=== PATIENT | male | born 1955 | race African-American/Black ===

== ENCOUNTER 2018-12-10 16:14 | Inpatient (IN) | payer SELFPAY ==
[~2018-12-10] VITALS: Ht 175.3 cm; Wt 76.2 kg
[2018-12-10] MEDS ORDERED: SODIUM CHLORIDE 0.9% 1,000 ML IV ONE (16:38)
[2018-12-10] MEDS ORDERED: ONDANSETRON HCL 4MG/2ML INJ IV ONE (17:00)
[2018-12-10] MEDS ORDERED: KETOROLAC 30MG/ML VIAL IV ONE (17:00)
[2018-12-10 17:07] LABS: BASOPHILS % 0.5 % (0.0-2.0); LYMPHOCYTES % 16.8 % (20.0-50.0); MEAN CORPUSCULAR HEMOGLOBIN 25.8 pg (28.0-32.0); MEAN CORPUSCULAR VOLUME 83.6 fL (80.0-94.0); MEAN PLATELET VOLUME 6.1 fl (7.4-10.4); MONOCYTES % 7.7 % (2.0-8.0); PLATELET 346 x1000/uL (130-400); RED BLOOD CELL COUNT 1.69 mill/uL (4.7-6.1); RED CELL DISTRIBUTION WIDTH 28.4 % (11.6-14.6)
[2018-12-10 17:09] LABS: CHLORIDE 110 mEq/L (98-107)
[2018-12-10 17:12] LABS: HEMATOCRIT. 14.1 % (42.0-52.0); HEMOGLOBIN. 4.4 g/dL (14.0-18.0)
[2018-12-10] MEDS ORDERED: CALCIUM CHLORIDE 1GM/10ML SYR IV NR (17:30)
[2018-12-10] MEDS ORDERED: FUROSEMIDE 20MG/2ML VIAL IVP NR (17:30)
[2018-12-10] MEDS ORDERED: SODIUM BICARBONATE 8.4% 1 MEQ/ML 50ML SYR IV NR (17:30)
[2018-12-10] MEDS ORDERED: DEXTROSE 50% WATER 50ML SYRINGE IV NR (17:30)
[2018-12-10] MEDS ORDERED: INSULIN REGULAR (HUMULIN R) 300UNITS/3ML IV NR (17:30)
[2018-12-10 17:57] LABS: PLATELET ESTIMATE NORMAL
[2018-12-10] MEDS ORDERED: MORPHINE SULFATE 4 MG/ML CPJ (NOT FOR IM USE) IV NR (18:00)
[2018-12-10] MEDS ORDERED: HYDRALAZINE 20MG/ML VIAL IV NR (18:15)
[2018-12-10] MEDS ORDERED: LIDOCAINE HCL/EPINEPHRINE 1%-EPI 1:100,000 50 ML VIAL INFIL ONE (18:30)
[2018-12-10] MEDS ORDERED: LIDOCAINE HCL/EPINEPHRINE 1%-EPI 1:100,000 20 ML VIAL INFIL NR (19:00)
[2018-12-10] MEDS ORDERED: ACETAMINOPHEN 650MG/20.3ML UDC GT PRN (19:30)
[2018-12-10] MEDS ORDERED: ACETAMINOPHEN 325MG TABLET PO PRN (19:30)
[2018-12-10] MEDS ORDERED: DEXTROSE 50% WATER 50ML SYRINGE IV PRN (19:30)
[2018-12-10] MEDS ORDERED: ONDANSETRON HCL 4MG/2ML INJ IV PRN (19:30)
[2018-12-10] MEDS ORDERED: ACETAMINOPHEN 650MG SUPP PR PRN (19:30)
[2018-12-10 20:01] LABS: PHOSPHORUS 7.2 mg/dL (2.5-4.9)
[2018-12-10 20:09] LABS: INR 1.1; PROTHROMBIN TIME 11.3 sec (9.6-11.0)
[2018-12-10 20:44] LABS: HEPATITIS B SURFACE ANTIGEN NEGATIVE
[2018-12-10] MEDS ORDERED: DEXTROSE 50% WATER 50ML SYRINGE IV ONE (22:00)
[2018-12-10 22:13] LABS: CREATINE KINASE 98 IU/L (39-308)
[2018-12-10 22:14] LABS: CREATINE KINASE MB FRACTION 2.5 ng/mL (0.5-3.6)
[2018-12-10 22:20] VITALS: BP 150/90
[2018-12-10] MEDS ORDERED: LACTULOSE 20G/30ML UDC PO NR (23:00)
[2018-12-11] VITALS (24 sets, daily range): BP systolic 127–162; BP diastolic 72–101
[2018-12-11] MEDS: SODIUM CHLORIDE 0.9% 1,000 ML IV SCH ×2 (04:44→11:59)
[2018-12-11 07:34] LABS: CREATINE KINASE 86 IU/L (39-308)
[2018-12-11 07:35] LABS: CREATINE KINASE MB FRACTION 2.3 ng/mL (0.5-3.6)
[2018-12-11] MEDS: INSULIN LISPRO 100 UNITS/ML SUBCUT SCH ×4 (08:00→21:00)
[2018-12-11] MEDS: BLOOD SUGAR DIAGNOSTIC STRIP TEST SCH ×4 (08:22→20:27)
[2018-12-11 09:23] LABS: BASOPHILS % 0.8 % (0.0-2.0); EOSINOPHILS % 2.8 % (0.0-5.0); LYMPHOCYTES % 14.8 % (20.0-50.0); MEAN CORPUSCULAR HEMOGLOBIN 26.3 pg (28.0-32.0); MEAN CORPUSCULAR VOLUME 80.4 fL (80.0-94.0); MEAN PLATELET VOLUME 6.8 fl (7.4-10.4); MONOCYTES % 8.6 % (2.0-8.0); PLATELET 253 x1000/uL (130-400); RED BLOOD CELL COUNT 2.12 mill/uL (4.7-6.1); RED CELL DISTRIBUTION WIDTH 20.6 % (11.6-14.6)
[2018-12-11 09:31] LABS: HEMOGLOBIN. 5.6 g/dL (14.0-18.0)
[2018-12-11 09:34] LABS: CHLORIDE 109 mEq/L (98-107)
[2018-12-11 12:20] LABS: CLARITY URINE CLOUDY (CLEAR); COLOR URINE YELLOW (YELLOW); KETONES URINE NEGATIVE (NEGATIVE); LEUKOCYTE ESTERASE URINE 3+ (NEGATIVE); NITRITE URINE POSITIVE (NEGATIVE); OCCULT BLOOD URINE 1+ (NEGATIVE); PROTEIN URINE 1+ (NEGATIVE); SPECIFIC GRAVITY URINE 1.011 (1.005-1.030); UROBILINOGEN URINE 0.2 E.U./dL (0.2-1.0)
[2018-12-11 12:36] LABS: *AMPHETAMINES SCREEN URINE NEGATIVE (NEGATIVE)
[2018-12-11 12:37] LABS: *BARBITURATES SCREEN URINE NEGATIVE (NEGATIVE); *BENZODIAZEPINES SCREEN URINE NEGATIVE (NEGATIVE); *COCAINE SCREEN URINE PRESUMTIVE POSITIVE (NEGATIVE); METHADONE URINE SCREEN NEGATIVE (NEGATIVE); OPIATES URINE SCREEN NEGATIVE (NEGATIVE)
[2018-12-11 12:38] LABS: CANNABINOID URINE SCREEN PRESUMTIVE POSITIVE (NEGATIVE); PHENCYCLIDINE URINE SCREEN NEGATIVE (NEGATIVE)
[2018-12-11 20:57] LABS: HEMATOCRIT 25.2 % (42.0-52.0); HEMOGLOBIN 8.6 g/dL (14.0-18.0)
[2018-12-11 21:08] LABS: TOTAL IRON BINDING CAPACITY 282 ug/dL (250-450)
[2018-12-11] MEDS: HYDROCODONE/ACETAMINOPHEN 10/325MG TABLET PO PRN (23:13)
[2018-12-12] VITALS (10 sets, daily range): BP systolic 109–163; BP diastolic 73–112
[2018-12-12] MEDS: PANTOPRAZOLE SODIUM 40 MG/VIAL IV SCH ×3 (00:39→17:03)
[2018-12-12] MEDS: SODIUM CHLORIDE 0.9% 1,000 ML IV SCH ×2 (04:56→21:38)
[2018-12-12 06:25] LABS: BASOPHILS % 0.7 % (0.0-2.0); EOSINOPHILS % 3.3 % (0.0-5.0); HEMATOCRIT. 24.6 % (42.0-52.0); HEMOGLOBIN. 8.3 g/dL (14.0-18.0); LYMPHOCYTES % 17.9 % (20.0-50.0); MEAN CORPUSCULAR HEMOGLOBIN 27.7 pg (28.0-32.0); MEAN CORPUSCULAR VOLUME 82.7 fL (80.0-94.0); MEAN PLATELET VOLUME 6.9 fl (7.4-10.4); MONOCYTES % 10.4 % (2.0-8.0); NEUTROPHILS % 67.7 % (40.0-76.0); PLATELET 224 x1000/uL (130-400); RED BLOOD CELL COUNT 2.98 mill/uL (4.7-6.1); RED CELL DISTRIBUTION WIDTH 19.2 % (11.6-14.6)
[2018-12-12] MEDS: BLOOD SUGAR DIAGNOSTIC STRIP TEST SCH ×4 (06:46→20:45)
[2018-12-12 07:29] LABS: CHLORIDE 112 mEq/L (98-107)
[2018-12-12 07:41] LABS: PHOSPHORUS 5.9 mg/dL (2.5-4.9)
[2018-12-12] MEDS: INSULIN LISPRO 100 UNITS/ML SUBCUT SCH ×4 (08:00→20:45)
[2018-12-12 08:18] LABS: *CREATININE RANDOM URINE 41.9 mg/dL (Not Estab.); MICROALBUMIN RANDOM URINE 79.2 ug/mL (Not Estab.)
[2018-12-12 09:10] LABS: A/G RATIO 0.9 (0.7-1.7); ALBUMIN 3.4 g/dL (2.9-4.4); ALPHA-1-GLOBULIN 0.4 g/dL (0.0-0.4); ALPHA-2-GLOBULIN 0.9 g/dL (0.4-1.0); BETA GLOBULIN 1.1 g/dL (0.7-1.3); GAMMA GLOBULINS 1.3 g/dL (0.4-1.8); GLOBULIN TOTAL 3.7 g/dL (2.2-3.9); IMMUNOGLOBULIN A 128 mg/dL (61-437); IMMUNOGLOBULIN G 1340 mg/dL (700-1600); IMMUNOGLOBULIN M 65 mg/dL (20-172); KAPPA LT CHAINS FREE SERUM 82.3 mg/L (3.3-19.4); KAPPA/LAMBDA RATIO 2.53 (0.26-1.65); LAMBDA LT CHAINS FREE SERUM 32.5 mg/L (5.7-26.3); M-SPIKE Not Observed g/dL (Not Observed); TOTAL PROTEIN SERUM 7.1 g/dL (6.0-8.5)
[2018-12-12] MEDS: AMLODIPINE 5MG TABLET PO SCH (10:21)
[2018-12-12 10:28] LABS: BG BASE EXCESS -6.1 mmol/L (-2.0-2.0); BG CARBOXYHEMOGLOBIN 0.3 % (0.5-1.5); BG FRACTION INSPIRED OXYGEN 21; BG HCO3 ACT 18.7 mmol/L (22.0-26.0); BG METHEMOGLOBIN 0.3 % (0.0-1.5); BG OXYHEMOGLOBIN 96.4 % (94.0-97.0); BG PCO2 33.7 mmHg (35.0-45.0); BG PH 7.361 (7.350-7.450); BG PO2 100.5 mmHg (75.0-100.0); BG SAMPLE SITE RIGHT BRACHIAL; BG TOTAL HEMOGLOBIN 8.9 g/dL (12.0-18.0); BG VENT MODE ROOM AIR
[2018-12-12 12:12] LABS: HEMATOCRIT 26.2 % (42.0-52.0); HEMOGLOBIN 8.9 g/dL (14.0-18.0)
[2018-12-12] MEDS: CLONIDINE 0.2MG TABLET PO SCH ×2 (13:38→21:07)
[2018-12-12 17:11] LABS: ANTI-DNA DOUBLE STRANDED QUANT < 1 IU/mL (0-9); ANTI-NUCLEAR ANTIBODIES DIRECT Negative (Negative)
[2018-12-12 18:08] LABS: HEMATOCRIT 22.8 % (42.0-52.0); HEMOGLOBIN 7.7 g/dL (14.0-18.0)
[2018-12-12] MEDS: HYDROCODONE/ACETAMINOPHEN 10/325MG TABLET PO PRN (21:08)
[2018-12-13] VITALS (16 sets, daily range): BP systolic 108–168; BP diastolic 70–101
[2018-12-13 00:57] LABS: HEMOGLOBIN 7.2 g/dL (14.0-18.0)
[2018-12-13 01:03] LABS: HEMATOCRIT 20.8 % (42.0-52.0)
[2018-12-13] MEDS: CLONIDINE 0.2MG TABLET PO SCH ×3 (06:00→21:08)
[2018-12-13 06:51] LABS: BASOPHILS % 0.5 % (0.0-2.0); EOSINOPHILS % 3.4 % (0.0-5.0); HEMATOCRIT. 25.6 % (42.0-52.0); HEMOGLOBIN. 8.6 g/dL (14.0-18.0); INR 1.1; LYMPHOCYTES % 21.1 % (20.0-50.0); MEAN CORPUSCULAR HEMOGLOBIN 28.1 pg (28.0-32.0); MEAN CORPUSCULAR VOLUME 84.1 fL (80.0-94.0); MEAN PLATELET VOLUME 6.8 fl (7.4-10.4); MONOCYTES % 11.6 % (2.0-8.0); NEUTROPHILS % 63.4 % (40.0-76.0); PARTIAL THROMBOPLASTIN TIME 27.1 sec (23.4-31.0); PLATELET 189 x1000/uL (130-400); PROTHROMBIN TIME 11.4 sec (9.6-11.0); RED BLOOD CELL COUNT 3.05 mill/uL (4.7-6.1); RED CELL DISTRIBUTION WIDTH 18.7 % (11.6-14.6)
[2018-12-13] MEDS: BLOOD SUGAR DIAGNOSTIC STRIP TEST SCH ×4 (06:54→21:00)
[2018-12-13] MEDS: INSULIN LISPRO 100 UNITS/ML SUBCUT SCH ×4 (08:00→21:00)
[2018-12-13 08:10] LABS: PHOSPHORUS 5.3 mg/dL (2.5-4.9)
[2018-12-13 08:18] LABS: COMPLEMENT C3 155 mg/dL (82-167)
[2018-12-13] MEDS: PANTOPRAZOLE SODIUM 40 MG/VIAL IV SCH ×2 (09:00→18:07)
[2018-12-13 09:06] LABS: GLOMERULAR BASEMENT MEMB AB 7 units (0-20)
[2018-12-13] MEDS ORDERED: MIDAZOLAM HCL 5 MG/5 ML VIAL ONE (09:17)
[2018-12-13] MEDS ORDERED: LIDOCAINE HCL 1% 20ML VIAL (Pyxis) INJ ONE (09:17)
[2018-12-13] MEDS ORDERED: PROPOFOL 200MG/20ML VIAL IV ONE (09:17)
[2018-12-13] MEDS: DOCUSATE SODIUM 100MG CAPSULE PO SCH ×2 (09:30→18:07)
[2018-12-13] MEDS ORDERED: SODIUM CHLORIDE 0.9% 1,000 ML IV ONE (09:37)
[2018-12-13] MEDS ORDERED: ONDANSETRON HCL 4MG/2ML INJ IV PRN (09:45)
[2018-12-13] MEDS ORDERED: HYDROMORPHONE HCL/PF 2MG/ML CPJ IV PRN (09:45)
[2018-12-13] MEDS ORDERED: MORPHINE SULFATE 4 MG/ML CPJ (NOT FOR IM USE) IV PRN (09:45)
[2018-12-13] MEDS: AMLODIPINE 5MG TABLET PO SCH (12:03)
[2018-12-13] MEDS: SODIUM CHLORIDE 0.9% 1,000 ML IV SCH (12:04)
[2018-12-13] MEDS: BICALUTAMIDE 50 MG TABLET PO SCH (12:09)
[2018-12-13 13:06] LABS: ANTI-MYELOPEROXIDASE AB < 9.0 U/mL (0.0-9.0); ANTI-PROTEINASE 3 ABS < 3.5 U/mL (0.0-3.5)
[2018-12-13 13:20] LABS: HEMOGLOBIN 9.4 g/dL (14.0-18.0)
[2018-12-13 15:10] LABS: ATYPICAL P-ANCA <1:20 titer (Neg:<1:20); CYTOPLASMIC C-ANCA <1:20 titer (Neg:<1:20); PERINUCLEAR P-ANCA <1:20 titer (Neg:<1:20)
[2018-12-13 17:01] LABS: CLARITY URINE CLEAR (CLEAR); COLOR URINE YELLOW (YELLOW); KETONES URINE NEGATIVE (NEGATIVE); LEUKOCYTE ESTERASE URINE 2+ (NEGATIVE); NITRITE URINE NEGATIVE (NEGATIVE); OCCULT BLOOD URINE 2+ (NEGATIVE); PH URINE 6.5 (4.5-8.0); PROTEIN URINE NEGATIVE (NEGATIVE); SPECIFIC GRAVITY URINE 1.008 (1.005-1.030); UROBILINOGEN URINE 0.2 E.U./dL (0.2-1.0)
[2018-12-13 19:41] LABS: HEMATOCRIT 29.6 % (42.0-52.0); HEMOGLOBIN 9.7 g/dL (14.0-18.0)
[2018-12-13] MEDS: HYDROCODONE/ACETAMINOPHEN 10/325MG TABLET PO PRN (21:08)
[2018-12-14] VITALS (12 sets, daily range): BP systolic 120–147; BP diastolic 66–89
[2018-12-14 04:16] LABS: ANTI-CARDIOLIPIN AB IGG < 9 GPL U/mL (0-14); ANTI-CARDIOLIPIN AB IGM < 9 MPL U/mL (0-12)
[2018-12-14] MEDS: CLONIDINE 0.2MG TABLET PO SCH ×3 (05:22→21:05)
[2018-12-14] MEDS: SODIUM CHLORIDE 0.9% 1,000 ML IV SCH (05:22)
[2018-12-14 05:54] LABS: BASOPHILS % 0.6 % (0.0-2.0); EOSINOPHILS % 3.5 % (0.0-5.0); HEMATOCRIT. 25.3 % (42.0-52.0); HEMOGLOBIN. 8.6 g/dL (14.0-18.0); LYMPHOCYTES % 10.9 % (20.0-50.0); MEAN CORPUSCULAR HEMOGLOBIN 28.7 pg (28.0-32.0); MEAN CORPUSCULAR VOLUME 84.6 fL (80.0-94.0); MONOCYTES % 7.1 % (2.0-8.0); NEUTROPHILS % 77.9 % (40.0-76.0); PLATELET 175 x1000/uL (130-400); RED BLOOD CELL COUNT 2.99 mill/uL (4.7-6.1); RED CELL DISTRIBUTION WIDTH 18.6 % (11.6-14.6)
[2018-12-14 06:09] LABS: CHLORIDE 112 mEq/L (98-107)
[2018-12-14] MEDS: BLOOD SUGAR DIAGNOSTIC STRIP TEST SCH ×4 (07:00→20:21)
[2018-12-14] MEDS: INSULIN LISPRO 100 UNITS/ML SUBCUT SCH ×4 (08:06→20:21)
[2018-12-14] MEDS ORDERED: BICA50TA48 PO (09:18)
[2018-12-14] MEDS ORDERED: AMLO5TAB88 PO (09:18)
[2018-12-14] MEDS: BICALUTAMIDE 50 MG TABLET PO SCH (09:34)
[2018-12-14] MEDS: DOCUSATE SODIUM 100MG CAPSULE PO SCH ×2 (09:34→17:00)
[2018-12-14] MEDS: PANTOPRAZOLE SODIUM 40 MG/VIAL IV SCH ×2 (09:34→17:55)
[2018-12-14] MEDS: AMLODIPINE 5MG TABLET PO SCH (09:34)
[2018-12-14] MEDS ORDERED: MAGNESIUM 2 G PREMIX 50 ML IV NR (10:30)
[2018-12-14] MEDS ORDERED: MAGNESIUM 2 G PREMIX 50 ML IV ONE (14:30)
[2018-12-14] MEDS: HYDROCODONE/ACETAMINOPHEN 10/325MG TABLET PO PRN (21:04)
[2018-12-15] VITALS (12 sets, daily range): BP systolic 97–142; BP diastolic 54–90
[2018-12-15] MEDS: SODIUM CHLORIDE 0.9% 1,000 ML IV SCH ×2 (00:53→17:30)
[2018-12-15] MEDS: CLONIDINE 0.2MG TABLET PO SCH ×3 (05:03→22:32)
[2018-12-15 06:01] LABS: HEMATOCRIT. 24.5 % (42.0-52.0); HEMOGLOBIN. 8.3 g/dL (14.0-18.0); MEAN CORPUSCULAR HEMOGLOBIN 28.6 pg (28.0-32.0); MEAN CORPUSCULAR VOLUME 84.7 fL (80.0-94.0); MEAN PLATELET VOLUME 7.4 fl (7.4-10.4); PLATELET 181 x1000/uL (130-400); RED BLOOD CELL COUNT 2.89 mill/uL (4.7-6.1); RED CELL DISTRIBUTION WIDTH 18.7 % (11.6-14.6)
[2018-12-15 06:31] LABS: PHOSPHORUS 3.9 mg/dL (2.5-4.9)
[2018-12-15] MEDS: BLOOD SUGAR DIAGNOSTIC STRIP TEST SCH ×4 (06:32→20:18)
[2018-12-15] MEDS: INSULIN LISPRO 100 UNITS/ML SUBCUT SCH ×4 (07:53→20:18)
[2018-12-15] MEDS: DOCUSATE SODIUM 100MG CAPSULE PO SCH ×2 (08:54→16:56)
[2018-12-15] MEDS: PANTOPRAZOLE SODIUM 40 MG/VIAL IV SCH ×2 (08:54→17:05)
[2018-12-15] MEDS: BICALUTAMIDE 50 MG TABLET PO SCH (08:54)
[2018-12-15] MEDS: AMLODIPINE 5MG TABLET PO SCH (08:55)
[2018-12-15] MEDS: HYDROCODONE/ACETAMINOPHEN 10/325MG TABLET PO PRN (20:13)
[2018-12-16] VITALS (12 sets, daily range): BP systolic 111–132; BP diastolic 64–78
[2018-12-16 05:42] LABS: HEMOGLOBIN. 8.1 g/dL (14.0-18.0); MEAN CORPUSCULAR HEMOGLOBIN 28.5 pg (28.0-32.0); MEAN CORPUSCULAR VOLUME 85.1 fL (80.0-94.0); MEAN PLATELET VOLUME 7.3 fl (7.4-10.4); PLATELET 168 x1000/uL (130-400); RED BLOOD CELL COUNT 2.83 mill/uL (4.7-6.1)
[2018-12-16] MEDS: CLONIDINE 0.2MG TABLET PO SCH ×3 (06:57→22:14)
[2018-12-16 06:59] LABS: CHLORIDE 112 mEq/L (98-107)
[2018-12-16 07:08] LABS: PHOSPHORUS 4.4 mg/dL (2.5-4.9)
[2018-12-16] MEDS: BLOOD SUGAR DIAGNOSTIC STRIP TEST SCH ×4 (07:30→21:00)
[2018-12-16] MEDS: INSULIN LISPRO 100 UNITS/ML SUBCUT SCH ×4 (08:00→21:00)
[2018-12-16] MEDS ORDERED: MAGNESIUM 4 G PREMIX 100 ML IV SCH (09:00)
[2018-12-16] MEDS: BICALUTAMIDE 50 MG TABLET PO SCH (09:25)
[2018-12-16] MEDS: PANTOPRAZOLE SODIUM 40 MG/VIAL IV SCH ×3 (09:25→18:05)
[2018-12-16] MEDS: DOCUSATE SODIUM 100MG CAPSULE PO SCH ×2 (09:25→18:05)
[2018-12-16] MEDS: AMLODIPINE 5MG TABLET PO SCH (09:29)
[2018-12-16] MEDS: SODIUM CHLORIDE 0.9% 1,000 ML IV SCH (09:42)
[2018-12-16 13:08] LABS: PLATELET ESTIMATE NORMAL
[2018-12-16] MEDS: HYDROCODONE/ACETAMINOPHEN 10/325MG TABLET PO PRN (18:23)
[2018-12-17] VITALS (9 sets, daily range): BP systolic 97–120; BP diastolic 56–70
[2018-12-17 05:06] LABS: BASOPHILS % 0.8 % (0.0-2.0); EOSINOPHILS % 4.2 % (0.0-5.0); HEMATOCRIT. 23.4 % (42.0-52.0); HEMOGLOBIN. 7.9 g/dL (14.0-18.0); MEAN CORPUSCULAR HEMOGLOBIN 28.8 pg (28.0-32.0); MEAN CORPUSCULAR VOLUME 85.3 fL (80.0-94.0); MEAN PLATELET VOLUME 7.1 fl (7.4-10.4); MONOCYTES % 13.4 % (2.0-8.0); NEUTROPHILS % 59.6 % (40.0-76.0); PLATELET 196 x1000/uL (130-400); RED BLOOD CELL COUNT 2.75 mill/uL (4.7-6.1); RED CELL DISTRIBUTION WIDTH 18.6 % (11.6-14.6)
[2018-12-17 05:49] LABS: CHLORIDE 110 mEq/L (98-107)
[2018-12-17 06:04] LABS: PHOSPHORUS 3.1 mg/dL (2.5-4.9)
[2018-12-17] MEDS: CLONIDINE 0.2MG TABLET PO SCH ×3 (06:23→21:11)
[2018-12-17] MEDS: BLOOD SUGAR DIAGNOSTIC STRIP TEST SCH ×4 (07:30→21:00)
[2018-12-17] MEDS: INSULIN LISPRO 100 UNITS/ML SUBCUT SCH ×4 (08:00→21:00)
[2018-12-17] MEDS: PANTOPRAZOLE SODIUM 40 MG/VIAL IV SCH ×2 (08:36→16:23)
[2018-12-17] MEDS: AMLODIPINE 5MG TABLET PO SCH (08:41)
[2018-12-17] MEDS: BICALUTAMIDE 50 MG TABLET PO SCH (08:42)
[2018-12-17] MEDS: DOCUSATE SODIUM 100MG CAPSULE PO SCH ×2 (08:43→16:23)
[2018-12-17] MEDS: HYDROCODONE/ACETAMINOPHEN 10/325MG TABLET PO PRN (21:26)
[2018-12-18] VITALS: BP 120/78
[2018-12-18 04:00] VITALS: BP 115/71
[2018-12-18] MEDS: CLONIDINE 0.2MG TABLET PO SCH ×3 (05:58→20:29)
[2018-12-18 07:00] VITALS: BP 119/70
[2018-12-18] MEDS: BLOOD SUGAR DIAGNOSTIC STRIP TEST SCH ×4 (07:20→20:29)
[2018-12-18] MEDS: INSULIN LISPRO 100 UNITS/ML SUBCUT SCH ×4 (07:30→20:29)
[2018-12-18] MEDS: AMLODIPINE 5MG TABLET PO SCH (08:43)
[2018-12-18] MEDS: PANTOPRAZOLE SODIUM 40 MG/VIAL IV SCH ×2 (08:43→16:25)
[2018-12-18] MEDS: DOCUSATE SODIUM 100MG CAPSULE PO SCH ×2 (08:43→16:25)
[2018-12-18] MEDS: BICALUTAMIDE 50 MG TABLET PO SCH (11:03)
[2018-12-18 11:42] VITALS: BP 124/81
[2018-12-18 16:00] VITALS: BP 97/66
[2018-12-18 20:00] VITALS: BP 106/67
[2018-12-18] MEDS: HYDROCODONE/ACETAMINOPHEN 10/325MG TABLET PO PRN (20:30)
[2018-12-19] VITALS: BP_SYST 107
[2018-12-19 04:00] VITALS: BP 114/74
[2018-12-19] MEDS: CLONIDINE 0.2MG TABLET PO SCH ×3 (05:45→22:00)
[2018-12-19] MEDS: BLOOD SUGAR DIAGNOSTIC STRIP TEST SCH ×4 (06:57→21:00)
[2018-12-19] MEDS: INSULIN LISPRO 100 UNITS/ML SUBCUT SCH ×4 (06:57→21:00)
[2018-12-19 08:00] VITALS: BP_SYST 104; BP_SYST 95; BP_DIAS 66; BP_DIAS 68
[2018-12-19] MEDS: BICALUTAMIDE 50 MG TABLET PO SCH (08:37)
[2018-12-19] MEDS: AMLODIPINE 5MG TABLET PO SCH (08:37)
[2018-12-19] MEDS: DOCUSATE SODIUM 100MG CAPSULE PO SCH ×2 (08:37→16:11)
[2018-12-19] MEDS: PANTOPRAZOLE SODIUM 40 MG/VIAL IV SCH ×2 (08:38→16:11)
[2018-12-19 12:00] VITALS: BP 113/81
[2018-12-19 16:00] VITALS: BP 100/67
[2018-12-19 20:00] VITALS: BP 104/67
[2018-12-19] MEDS: HYDROCODONE/ACETAMINOPHEN 10/325MG TABLET PO PRN (20:05)
[2018-12-20] VITALS (7 sets, daily range): BP systolic 102–136; BP diastolic 67–88
[2018-12-20] MEDS: CLONIDINE 0.2MG TABLET PO SCH ×3 (06:20→21:26)
[2018-12-20] MEDS: BLOOD SUGAR DIAGNOSTIC STRIP TEST SCH ×4 (06:24→21:00)
[2018-12-20] MEDS: INSULIN LISPRO 100 UNITS/ML SUBCUT SCH ×4 (07:00→21:00)
[2018-12-20] MEDS: BICALUTAMIDE 50 MG TABLET PO SCH (08:55)
[2018-12-20] MEDS: AMLODIPINE 5MG TABLET PO SCH (08:56)
[2018-12-20] MEDS: PANTOPRAZOLE SODIUM 40 MG/VIAL IV SCH ×2 (08:56→16:17)
[2018-12-20] MEDS: DOCUSATE SODIUM 100MG CAPSULE PO SCH ×2 (08:56→16:17)
[2018-12-20] MEDS: HYDROCODONE/ACETAMINOPHEN 10/325MG TABLET PO PRN (21:16)
[2018-12-20] MEDS: DIPHENHYDRAMINE 50MG/ML VIAL IV PRN (21:24)
[2018-12-21] VITALS: BP 118/80
[2018-12-21 04:00] VITALS: BP 116/81
[2018-12-21] MEDS: CLONIDINE 0.2MG TABLET PO SCH ×3 (05:18→22:00)
[2018-12-21] MEDS: BLOOD SUGAR DIAGNOSTIC STRIP TEST SCH ×4 (05:19→21:00)
[2018-12-21] MEDS: INSULIN LISPRO 100 UNITS/ML SUBCUT SCH ×4 (07:50→21:00)
[2018-12-21 08:00] VITALS: BP 102/62
[2018-12-21] MEDS: PANTOPRAZOLE SODIUM 40 MG/VIAL IV SCH ×2 (08:40→16:42)
[2018-12-21] MEDS: HYDROCODONE/ACETAMINOPHEN 10/325MG TABLET PO PRN ×3 (08:41→21:25)
[2018-12-21] MEDS: DOCUSATE SODIUM 100MG CAPSULE PO SCH ×2 (08:45→17:00)
[2018-12-21] MEDS: AMLODIPINE 5MG TABLET PO SCH (08:45)
[2018-12-21] MEDS: BICALUTAMIDE 50 MG TABLET PO SCH (09:06)
[2018-12-21 12:00] VITALS: BP 103/62
[2018-12-21 16:03] VITALS: BP 122/71
[2018-12-21] MEDS: DIPHENHYDRAMINE 50MG/ML VIAL IV PRN (18:49)
[2018-12-21 20:00] VITALS: BP 116/70
[2018-12-22] VITALS: BP 130/79
[2018-12-22 04:00] VITALS: BP 128/70
[2018-12-22] MEDS: CLONIDINE 0.2MG TABLET PO SCH ×2 (05:18→14:00)
[2018-12-22] MEDS: BLOOD SUGAR DIAGNOSTIC STRIP TEST SCH ×4 (05:19→21:25)
[2018-12-22] MEDS: INSULIN LISPRO 100 UNITS/ML SUBCUT SCH ×4 (07:50→21:00)
[2018-12-22 08:00] VITALS: BP 85/57
[2018-12-22] MEDS: AMLODIPINE 5MG TABLET PO SCH (09:00)
[2018-12-22] MEDS: PANTOPRAZOLE SODIUM 40 MG/VIAL IV SCH ×2 (09:00→17:00)
[2018-12-22] MEDS: BICALUTAMIDE 50 MG TABLET PO SCH (09:29)
[2018-12-22] MEDS: DOCUSATE SODIUM 100MG CAPSULE PO SCH ×2 (09:29→17:07)
[2018-12-22 12:00] VITALS: BP 125/71
[2018-12-22] MEDS: HYDROCODONE/ACETAMINOPHEN 10/325MG TABLET PO PRN (17:08)
[2018-12-22 17:18] LABS: BASOPHILS % 1.3 % (0.0-2.0); EOSINOPHILS % 3.5 % (0.0-5.0); HEMATOCRIT. 25.8 % (42.0-52.0); HEMOGLOBIN. 8.5 g/dL (14.0-18.0); LYMPHOCYTES % 18.3 % (20.0-50.0); MEAN CORPUSCULAR HEMOGLOBIN 28.5 pg (28.0-32.0); MEAN CORPUSCULAR VOLUME 86.2 fL (80.0-94.0); MEAN PLATELET VOLUME 7.1 fl (7.4-10.4); MONOCYTES % 13.5 % (2.0-8.0); NEUTROPHILS % 63.4 % (40.0-76.0); PLATELET 358 x1000/uL (130-400); RED BLOOD CELL COUNT 2.99 mill/uL (4.7-6.1); RED CELL DISTRIBUTION WIDTH 18.4 % (11.6-14.6)
[2018-12-22 17:19] LABS: CHLORIDE 108 mEq/L (98-107)
[2018-12-22] MEDS ORDERED: LACTULOSE 20G/30ML UDC PO NR (17:45)
[2018-12-22] MEDS ORDERED: SODIUM POLYSTYRENE SULFONATE 15 G/60 ML BOT PO NR (17:45)
[2018-12-22 20:00] VITALS: BP 116/74
[2018-12-23] VITALS: BP 117/70
[2018-12-23 04:00] VITALS: BP 122/70
[2018-12-23] MEDS: BLOOD SUGAR DIAGNOSTIC STRIP TEST SCH ×4 (06:47→21:00)
[2018-12-23 07:48] LABS: CHLORIDE 107 mEq/L (98-107)
[2018-12-23] MEDS: INSULIN LISPRO 100 UNITS/ML SUBCUT SCH ×4 (07:50→21:00)
[2018-12-23] MEDS: PANTOPRAZOLE SODIUM 40 MG/VIAL IV SCH ×2 (07:59→17:00)
[2018-12-23 08:00] VITALS: BP 116/76
[2018-12-23] MEDS: AMLODIPINE 5MG TABLET PO SCH (08:55)
[2018-12-23] MEDS: DOCUSATE SODIUM 100MG CAPSULE PO SCH ×2 (08:55→17:00)
[2018-12-23] MEDS: BICALUTAMIDE 50 MG TABLET PO SCH (09:06)
[2018-12-23 12:00] VITALS: BP 109/76
[2018-12-23] MEDS: HYDROCODONE/ACETAMINOPHEN 10/325MG TABLET PO PRN (14:29)
[2018-12-23 16:00] VITALS: BP 109/70
[2018-12-23 20:00] VITALS: BP 125/70
[2018-12-24] VITALS (7 sets, daily range): BP systolic 105–125; BP diastolic 65–85
[2018-12-24] MEDS: BLOOD SUGAR DIAGNOSTIC STRIP TEST SCH ×4 (07:20→21:00)
[2018-12-24] MEDS: INSULIN LISPRO 100 UNITS/ML SUBCUT SCH ×4 (07:50→21:00)
[2018-12-24] MEDS: DOCUSATE SODIUM 100MG CAPSULE PO SCH ×2 (08:38→17:00)
[2018-12-24] MEDS: BICALUTAMIDE 50 MG TABLET PO SCH (08:38)
[2018-12-24] MEDS: AMLODIPINE 5MG TABLET PO SCH (08:38)
[2018-12-24] MEDS: PANTOPRAZOLE SODIUM 40 MG/VIAL IV SCH ×2 (08:39→17:00)
[2018-12-24] MEDS: HYDROCODONE/ACETAMINOPHEN 10/325MG TABLET PO PRN ×2 (10:43→20:41)
[2018-12-25] VITALS: BP 105/64
[2018-12-25 04:00] VITALS: BP 131/85
[2018-12-25] MEDS: HYDROCODONE/ACETAMINOPHEN 10/325MG TABLET PO PRN ×2 (06:36→17:24)
[2018-12-25] MEDS: BLOOD SUGAR DIAGNOSTIC STRIP TEST SCH ×4 (07:20→21:00)
[2018-12-25] MEDS: INSULIN LISPRO 100 UNITS/ML SUBCUT SCH ×4 (07:41→21:00)
[2018-12-25 08:00] VITALS: BP 120/82
[2018-12-25] MEDS: DOCUSATE SODIUM 100MG CAPSULE PO SCH ×2 (08:20→17:24)
[2018-12-25] MEDS: AMLODIPINE 5MG TABLET PO SCH (08:20)
[2018-12-25] MEDS: BICALUTAMIDE 50 MG TABLET PO SCH (08:21)
[2018-12-25] MEDS: PANTOPRAZOLE SODIUM 40 MG/VIAL IV SCH ×2 (09:00→17:00)
[2018-12-25 11:42] VITALS: BP 100/68
[2018-12-25 16:00] VITALS: BP 112/80
[2018-12-25 20:00] VITALS: BP 126/85
[2018-12-26] VITALS: BP 11/76
[2018-12-26 04:00] VITALS: BP 122/74
[2018-12-26] MEDS: BLOOD SUGAR DIAGNOSTIC STRIP TEST SCH ×4 (06:23→20:52)
[2018-12-26] MEDS: INSULIN LISPRO 100 UNITS/ML SUBCUT SCH ×4 (07:50→20:52)
[2018-12-26 08:00] VITALS: BP 123/83
[2018-12-26] MEDS: PANTOPRAZOLE SODIUM 40 MG/VIAL IV SCH ×2 (08:55→16:03)
[2018-12-26] MEDS: BICALUTAMIDE 50 MG TABLET PO SCH (08:59)
[2018-12-26] MEDS: DOCUSATE SODIUM 100MG CAPSULE PO SCH ×2 (08:59→16:25)
[2018-12-26] MEDS: AMLODIPINE 5MG TABLET PO SCH (08:59)
[2018-12-26] MEDS: HYDROCODONE/ACETAMINOPHEN 10/325MG TABLET PO PRN ×2 (10:12→16:26)
[2018-12-26 12:11] VITALS: BP 108/60
[2018-12-26 15:41] VITALS: BP 120/52
[2018-12-26 20:33] VITALS: BP 121/68
[2018-12-27 00:32] VITALS: BP 110/66
[2018-12-27 04:00] VITALS: BP 118/84
[2018-12-27] MEDS: BLOOD SUGAR DIAGNOSTIC STRIP TEST SCH ×4 (06:41→21:00)
[2018-12-27] MEDS: INSULIN LISPRO 100 UNITS/ML SUBCUT SCH ×4 (07:50→21:00)
[2018-12-27 08:00] VITALS: BP 112/80
[2018-12-27] MEDS: AMLODIPINE 5MG TABLET PO SCH (09:00)
[2018-12-27] MEDS: DOCUSATE SODIUM 100MG CAPSULE PO SCH ×2 (09:54→17:00)
[2018-12-27] MEDS: PANTOPRAZOLE SODIUM 40 MG/VIAL IV SCH ×2 (09:54→10:15)
[2018-12-27] MEDS: BICALUTAMIDE 50 MG TABLET PO SCH (10:11)
[2018-12-27] MEDS: HYDROCODONE/ACETAMINOPHEN 10/325MG TABLET PO PRN ×3 (10:13→22:57)
[2018-12-27 12:14] VITALS: BP 119/75
[2018-12-27 16:23] VITALS: BP 115/73
[2018-12-27 20:00] VITALS: BP 114/76
[2018-12-28 00:04] VITALS: BP 112/77
[2018-12-28 04:02] VITALS: BP 115/82
[2018-12-28] MEDS: BLOOD SUGAR DIAGNOSTIC STRIP TEST SCH ×4 (06:43→21:00)
[2018-12-28] MEDS: INSULIN LISPRO 100 UNITS/ML SUBCUT SCH ×4 (07:47→21:00)
[2018-12-28 08:00] VITALS: BP 121/84
[2018-12-28] MEDS: PANTOPRAZOLE SODIUM 40 MG/VIAL IV SCH ×3 (09:00→17:00)
[2018-12-28] MEDS: DOCUSATE SODIUM 100MG CAPSULE PO SCH ×2 (09:25→17:00)
[2018-12-28] MEDS: BICALUTAMIDE 50 MG TABLET PO SCH (09:25)
[2018-12-28] MEDS: AMLODIPINE 5MG TABLET PO SCH (09:25)
[2018-12-28 12:00] VITALS: BP 118/78
[2018-12-28 16:00] VITALS: BP 122/76
[2018-12-28] MEDS: HYDROCODONE/ACETAMINOPHEN 10/325MG TABLET PO PRN (19:55)
[2018-12-28 20:00] VITALS: BP 122/72
[2018-12-29] VITALS: BP 121/76
[2018-12-29] MEDS: HYDROCODONE/ACETAMINOPHEN 10/325MG TABLET PO PRN ×4 (02:27→22:33)
[2018-12-29 04:00] VITALS: BP 125/69
[2018-12-29] MEDS: BLOOD SUGAR DIAGNOSTIC STRIP TEST SCH ×4 (06:37→21:00)
[2018-12-29] MEDS: INSULIN LISPRO 100 UNITS/ML SUBCUT SCH ×4 (07:25→21:00)
[2018-12-29 08:00] VITALS: BP 129/91
[2018-12-29] MEDS: DOCUSATE SODIUM 100MG CAPSULE PO SCH ×2 (09:00→16:07)
[2018-12-29] MEDS: PANTOPRAZOLE SODIUM 40 MG/VIAL IV SCH ×2 (09:00→16:07)
[2018-12-29] MEDS: AMLODIPINE 5MG TABLET PO SCH (09:30)
[2018-12-29] MEDS: BICALUTAMIDE 50 MG TABLET PO SCH (09:31)
[2018-12-29 12:00] VITALS: BP 106/65
[2018-12-29 16:00] VITALS: BP 131/84
[2018-12-29 20:00] VITALS: BP 121/86
[2018-12-30] VITALS: BP 113/71
[2018-12-30 04:00] VITALS: BP 121/78
[2018-12-30] MEDS: HYDROCODONE/ACETAMINOPHEN 10/325MG TABLET PO PRN ×3 (05:30→20:36)
[2018-12-30] MEDS: BLOOD SUGAR DIAGNOSTIC STRIP TEST SCH ×4 (07:20→21:00)
[2018-12-30] MEDS: INSULIN LISPRO 100 UNITS/ML SUBCUT SCH ×4 (07:50→21:00)
[2018-12-30 08:00] VITALS: BP 118/76
[2018-12-30] MEDS: PANTOPRAZOLE SODIUM 40 MG/VIAL IV SCH ×2 (08:17→17:00)
[2018-12-30] MEDS: DOCUSATE SODIUM 100MG CAPSULE PO SCH ×2 (08:17→17:00)
[2018-12-30] MEDS: AMLODIPINE 5MG TABLET PO SCH (08:18)
[2018-12-30] MEDS: BICALUTAMIDE 50 MG TABLET PO SCH (08:19)
[2018-12-30 12:00] VITALS: BP 108/75
[2018-12-30 16:00] VITALS: BP 107/66
[2018-12-30 20:00] VITALS: BP 104/68
[2018-12-31] VITALS: BP 119/74
[2018-12-31 04:00] VITALS: BP 111/74
[2018-12-31] MEDS: HYDROCODONE/ACETAMINOPHEN 10/325MG TABLET PO PRN ×3 (06:33→20:23)
[2018-12-31] MEDS: BLOOD SUGAR DIAGNOSTIC STRIP TEST SCH ×4 (06:37→21:00)
[2018-12-31] MEDS: INSULIN LISPRO 100 UNITS/ML SUBCUT SCH ×4 (07:36→21:00)
[2018-12-31 08:00] VITALS: BP 112/73
[2018-12-31] MEDS: BICALUTAMIDE 50 MG TABLET PO SCH (08:18)
[2018-12-31] MEDS: AMLODIPINE 5MG TABLET PO SCH (08:18)
[2018-12-31] MEDS: DOCUSATE SODIUM 100MG CAPSULE PO SCH ×2 (08:19→17:00)
[2018-12-31] MEDS: PANTOPRAZOLE SODIUM 40 MG/VIAL IV SCH ×2 (08:19→17:00)
[2018-12-31 12:00] VITALS: BP 103/71
[2018-12-31 16:00] VITALS: BP 111/77
[2018-12-31 20:00] VITALS: BP 141/85
[2019-01-01] VITALS: BP_SYST 103; BP_SYST 108; BP_DIAS 64; BP_DIAS 68
[2019-01-01 04:00] VITALS: BP 103/66
[2019-01-01] MEDS: HYDROCODONE/ACETAMINOPHEN 10/325MG TABLET PO PRN ×3 (04:24→19:58)
[2019-01-01] MEDS: BLOOD SUGAR DIAGNOSTIC STRIP TEST SCH ×4 (07:20→21:00)
[2019-01-01] MEDS: INSULIN LISPRO 100 UNITS/ML SUBCUT SCH ×4 (07:47→21:00)
[2019-01-01 08:00] VITALS: BP 107/75
[2019-01-01] MEDS: PANTOPRAZOLE SODIUM 40 MG/VIAL IV SCH ×2 (08:54→16:34)
[2019-01-01] MEDS: AMLODIPINE 5MG TABLET PO SCH (08:55)
[2019-01-01] MEDS: BICALUTAMIDE 50 MG TABLET PO SCH (08:58)
[2019-01-01] MEDS: DOCUSATE SODIUM 100MG CAPSULE PO SCH ×2 (08:58→18:43)
[2019-01-01 12:00] VITALS: BP 104/66
[2019-01-01 16:00] VITALS: BP 113/72
[2019-01-01 20:00] VITALS: BP 114/76
[2019-01-02] VITALS: BP 108/68
[2019-01-02] MEDS: HYDROCODONE/ACETAMINOPHEN 10/325MG TABLET PO PRN ×3 (03:36→15:57)
[2019-01-02 04:00] VITALS: BP 111/76
[2019-01-02] MEDS: BLOOD SUGAR DIAGNOSTIC STRIP TEST SCH ×4 (07:20→21:00)
[2019-01-02] MEDS: INSULIN LISPRO 100 UNITS/ML SUBCUT SCH ×4 (07:30→21:00)
[2019-01-02 08:00] VITALS: BP 105/69
[2019-01-02] MEDS: PANTOPRAZOLE SODIUM 40 MG/VIAL IV SCH ×2 (08:09→16:47)
[2019-01-02] MEDS: AMLODIPINE 5MG TABLET PO SCH (08:09)
[2019-01-02] MEDS: DOCUSATE SODIUM 100MG CAPSULE PO SCH ×2 (09:35→16:58)
[2019-01-02] MEDS: BICALUTAMIDE 50 MG TABLET PO SCH (09:35)
[2019-01-02 12:00] VITALS: BP 110/71
[2019-01-02 16:00] VITALS: BP 112/70
[2019-01-02 16:41] LABS: BASOPHILS % 1.1 % (0.0-2.0); EOSINOPHILS % 5.5 % (0.0-5.0); HEMATOCRIT. 24.6 % (42.0-52.0); LYMPHOCYTES % 27.7 % (20.0-50.0); MEAN CORPUSCULAR HEMOGLOBIN 28.5 pg (28.0-32.0); MEAN CORPUSCULAR VOLUME 87.4 fL (80.0-94.0); MEAN PLATELET VOLUME 6.8 fl (7.4-10.4); MONOCYTES % 14.9 % (2.0-8.0); NEUTROPHILS % 50.8 % (40.0-76.0); PLATELET 356 x1000/uL (130-400); RED BLOOD CELL COUNT 2.82 mill/uL (4.7-6.1); RED CELL DISTRIBUTION WIDTH 19.3 % (11.6-14.6)
[2019-01-02 16:50] LABS: CHLORIDE 111 mEq/L (98-107)
[2019-01-02 20:00] VITALS: BP 115/75
[2019-01-02] MEDS ORDERED: HYDROCODONE/ACETAMINOPHEN 10/325MG TABLET PO PRN (22:15)
[2019-01-03] VITALS: BP 104/71
[2019-01-03 04:00] VITALS: BP 132/85
[2019-01-03] MEDS: BLOOD SUGAR DIAGNOSTIC STRIP TEST SCH ×3 (07:20→17:20)
[2019-01-03] MEDS: INSULIN LISPRO 100 UNITS/ML SUBCUT SCH ×3 (07:42→17:50)
[2019-01-03 08:00] VITALS: BP 109/78
[2019-01-03] MEDS: PANTOPRAZOLE SODIUM 40 MG/VIAL IV SCH ×2 (09:00→17:00)
[2019-01-03] MEDS: DOCUSATE SODIUM 100MG CAPSULE PO SCH ×2 (09:00→17:00)
[2019-01-03] MEDS: AMLODIPINE 5MG TABLET PO SCH (09:00)
[2019-01-03] MEDS: HYDROCODONE/ACETAMINOPHEN 10/325MG TABLET PO PRN ×2 (10:01→18:57)
[2019-01-03] MEDS: BICALUTAMIDE 50 MG TABLET PO SCH (10:03)
[2019-01-03 12:00] VITALS: BP 125/75
[2019-01-03 16:00] VITALS: BP 114/72
[2019-01-03 20:00] VITALS: BP 123/71
[2019-01-04] VITALS: BP 115/73
[2019-01-04 04:00] VITALS: BP 120/70
[2019-01-04] MEDS: BLOOD SUGAR DIAGNOSTIC STRIP TEST SCH ×4 (07:20→20:31)
[2019-01-04] MEDS: INSULIN LISPRO 100 UNITS/ML SUBCUT SCH ×4 (07:50→20:31)
[2019-01-04 08:00] VITALS: BP 122/82
[2019-01-04] MEDS: PANTOPRAZOLE SODIUM 40 MG/VIAL IV SCH ×2 (09:00→17:00)
[2019-01-04] MEDS: DOCUSATE SODIUM 100MG CAPSULE PO SCH ×2 (09:00→17:00)
[2019-01-04] MEDS: HYDROCODONE/ACETAMINOPHEN 10/325MG TABLET PO PRN ×2 (09:52→18:33)
[2019-01-04] MEDS: BICALUTAMIDE 50 MG TABLET PO SCH (09:53)
[2019-01-04] MEDS: AMLODIPINE 5MG TABLET PO SCH (09:53)
[2019-01-04 11:33] VITALS: BP 128/76
[2019-01-04 16:00] VITALS: BP 109/70
[2019-01-04 20:00] VITALS: BP 110/71
[2019-01-05] VITALS (7 sets, daily range): BP systolic 95–107; BP diastolic 52–68
[2019-01-05] MEDS: BLOOD SUGAR DIAGNOSTIC STRIP TEST SCH ×4 (06:57→20:10)
[2019-01-05] MEDS: INSULIN LISPRO 100 UNITS/ML SUBCUT SCH ×4 (07:50→20:10)
[2019-01-05] MEDS: PANTOPRAZOLE SODIUM 40 MG/VIAL IV SCH ×2 (09:00→17:00)
[2019-01-05] MEDS: DOCUSATE SODIUM 100MG CAPSULE PO SCH ×2 (09:00→17:00)
[2019-01-05] MEDS: AMLODIPINE 5MG TABLET PO SCH (09:00)
[2019-01-05] MEDS: BICALUTAMIDE 50 MG TABLET PO SCH (09:27)
[2019-01-05] MEDS: HYDROCODONE/ACETAMINOPHEN 10/325MG TABLET PO PRN (12:02)
[2019-01-06 04:00] VITALS: BP 113/78
[2019-01-06] MEDS: BLOOD SUGAR DIAGNOSTIC STRIP TEST SCH ×4 (07:20→20:56)
[2019-01-06] MEDS: INSULIN LISPRO 100 UNITS/ML SUBCUT SCH ×4 (07:26→20:56)
[2019-01-06 08:00] VITALS: BP 106/73
[2019-01-06] MEDS: PANTOPRAZOLE SODIUM 40 MG/VIAL IV SCH ×2 (08:24→16:52)
[2019-01-06] MEDS: AMLODIPINE 5MG TABLET PO SCH (08:24)
[2019-01-06] MEDS: HYDROCODONE/ACETAMINOPHEN 10/325MG TABLET PO PRN ×3 (08:25→21:22)
[2019-01-06] MEDS: BICALUTAMIDE 50 MG TABLET PO SCH (08:25)
[2019-01-06] MEDS: DOCUSATE SODIUM 100MG CAPSULE PO SCH ×2 (08:25→16:53)
[2019-01-06 12:00] VITALS: BP 109/69
[2019-01-06 16:00] VITALS: BP 98/69
[2019-01-06 20:00] VITALS: BP 100/64
[2019-01-07] VITALS: BP 98/59
[2019-01-07 04:00] VITALS: BP 100/59
[2019-01-07] MEDS: BLOOD SUGAR DIAGNOSTIC STRIP TEST SCH ×4 (05:38→21:00)
[2019-01-07] MEDS: INSULIN LISPRO 100 UNITS/ML SUBCUT SCH ×4 (05:38→21:00)
[2019-01-07] MEDS: HYDROCODONE/ACETAMINOPHEN 10/325MG TABLET PO PRN ×3 (06:25→19:50)
[2019-01-07 07:55] VITALS: BP 111/64
[2019-01-07] MEDS: DOCUSATE SODIUM 100MG CAPSULE PO SCH ×2 (08:19→17:00)
[2019-01-07] MEDS: AMLODIPINE 5MG TABLET PO SCH (08:19)
[2019-01-07] MEDS: BICALUTAMIDE 50 MG TABLET PO SCH (08:19)
[2019-01-07] MEDS: PANTOPRAZOLE SODIUM 40 MG/VIAL IV SCH ×2 (08:19→16:03)
[2019-01-07 12:00] VITALS: BP 120/65
[2019-01-07 15:57] VITALS: BP 108/65
[2019-01-07 20:00] VITALS: BP 97/68
[2019-01-07] MEDS ORDERED: HYDROCODONE/ACETAMINOPHEN 10/325MG TABLET PO PRN (21:45)
[2019-01-08] VITALS: BP 106/67
[2019-01-08 04:00] VITALS: BP 111/75
[2019-01-08] MEDS: BLOOD SUGAR DIAGNOSTIC STRIP TEST SCH (07:20)
[2019-01-08] MEDS: INSULIN LISPRO 100 UNITS/ML SUBCUT SCH (07:50)
[2019-01-08 08:00] VITALS: BP 123/85
[2019-01-08] MEDS: PANTOPRAZOLE SODIUM 40 MG/VIAL IV SCH ×2 (08:11→16:58)
[2019-01-08] MEDS: AMLODIPINE 5MG TABLET PO SCH (08:13)
[2019-01-08] MEDS: DOCUSATE SODIUM 100MG CAPSULE PO SCH ×2 (08:13→16:58)
[2019-01-08] MEDS: BICALUTAMIDE 50 MG TABLET PO SCH (09:33)
[2019-01-08 12:00] VITALS: BP 107/68
[2019-01-08] MEDS: HYDROCODONE/ACETAMINOPHEN 10/325MG TABLET PO PRN ×2 (13:37→21:30)
[2019-01-08 16:00] VITALS: BP 106/71
[2019-01-08 20:00] VITALS: BP 113/75
[2019-01-09 00:04] VITALS: BP 103/63
[2019-01-09 04:00] VITALS: BP 104/66
[2019-01-09] MEDS: HYDROCODONE/ACETAMINOPHEN 10/325MG TABLET PO PRN ×3 (05:13→20:26)
[2019-01-09 06:40] LABS: CHLORIDE 109 mEq/L (98-107); HEMATOCRIT. 25.2 % (42.0-52.0); HEMOGLOBIN. 8.2 g/dL (14.0-18.0); MEAN CORPUSCULAR HEMOGLOBIN 28.6 pg (28.0-32.0); MEAN CORPUSCULAR VOLUME 88.3 fL (80.0-94.0); PLATELET 249 x1000/uL (130-400); RED BLOOD CELL COUNT 2.85 mill/uL (4.7-6.1); RED CELL DISTRIBUTION WIDTH 19.3 % (11.6-14.6)
[2019-01-09 08:00] VITALS: BP 117/77
[2019-01-09] MEDS: DOCUSATE SODIUM 100MG CAPSULE PO SCH ×2 (08:36→16:15)
[2019-01-09] MEDS: AMLODIPINE 5MG TABLET PO SCH (08:37)
[2019-01-09] MEDS: BICALUTAMIDE 50 MG TABLET PO SCH (08:37)
[2019-01-09 10:57] LABS: PLATELET ESTIMATE NORMAL
[2019-01-09 12:00] VITALS: BP 110/65
[2019-01-09 16:00] VITALS: BP 131/74
[2019-01-09 20:00] VITALS: BP 118/66
[2019-01-10] VITALS: BP 112/59
[2019-01-10] MEDS: HYDROCODONE/ACETAMINOPHEN 10/325MG TABLET PO PRN ×4 (03:11→20:35)
[2019-01-10 04:00] VITALS: BP 119/60
[2019-01-10 08:00] VITALS: BP 112/74
[2019-01-10] MEDS: BICALUTAMIDE 50 MG TABLET PO SCH (08:33)
[2019-01-10] MEDS: DOCUSATE SODIUM 100MG CAPSULE PO SCH (08:34)
[2019-01-10 12:00] VITALS: BP 134/84
[2019-01-10 16:00] VITALS: BP 120/74
[2019-01-10 20:00] VITALS: BP 115/67
[2019-01-11] VITALS: BP 100/68
[2019-01-11 04:00] VITALS: BP 108/69
[2019-01-11] MEDS: HYDROCODONE/ACETAMINOPHEN 10/325MG TABLET PO PRN ×3 (05:40→21:43)
[2019-01-11 08:00] VITALS: BP 144/90
[2019-01-11 12:00] VITALS: BP 111/74
[2019-01-11 16:00] VITALS: BP 110/55
[2019-01-11] MEDS: BICALUTAMIDE 50 MG TABLET PO SCH (19:05)
[2019-01-11 20:00] VITALS: BP 110/67
[2019-01-12] VITALS: BP 110/63
[2019-01-12] MEDS: HYDROCODONE/ACETAMINOPHEN 10/325MG TABLET PO PRN ×3 (03:48→20:24)
[2019-01-12 04:00] VITALS: BP 118/73
[2019-01-12 08:00] VITALS: BP 100/71
[2019-01-12] MEDS: BICALUTAMIDE 50 MG TABLET PO SCH (08:20)
[2019-01-12 12:00] VITALS: BP_SYST 104; BP_SYST 108; BP_DIAS 61; BP_DIAS 63
[2019-01-12 16:00] VITALS: BP_SYST 102; BP_SYST 104; BP_DIAS 62; BP_DIAS 67
[2019-01-12 20:00] VITALS: BP 105/65
[2019-01-13] VITALS: BP 109/65
[2019-01-13 04:00] VITALS: BP 151/90
[2019-01-13] MEDS: HYDROCODONE/ACETAMINOPHEN 10/325MG TABLET PO PRN ×2 (05:50→15:52)
[2019-01-13 08:00] VITALS: BP 124/65
[2019-01-13] MEDS: BICALUTAMIDE 50 MG TABLET PO SCH (09:54)
[2019-01-13 12:00] VITALS: BP 122/71
[2019-01-13 16:00] VITALS: BP 113/73
[2019-01-13 20:00] VITALS: BP 102/66
[2019-01-14] VITALS (7 sets, daily range): BP systolic 104–121; BP diastolic 65–82
[2019-01-14] MEDS: HYDROCODONE/ACETAMINOPHEN 10/325MG TABLET PO PRN ×3 (00:05→18:17)
[2019-01-14] MEDS: BICALUTAMIDE 50 MG TABLET PO SCH (09:10)
== END 2019-01-14 21:00 | disposition hospice, home (50) | DRG 691 ==
LOC: ER 16:14 → 5EST 17:40 → EDBEDREQSVC 17:57 → EDBEDREQTM 17:57 → EDBEDREQ 17:57 → ENRESERV 21:03 → 6EST 12-17 14:35
PROVIDERS: ADMIT Family Medicine; ATTEND Family Medicine
PROC: 30233N1 Transfusion of Nonautologous Red Blood Cells into Peripheral Vein, Percutaneous Approach (ICD-10-PCS; 2018-12-13)
PROC: 07DQ3ZX Extraction of Sternum Bone Marrow, Percutaneous Approach, Diagnostic (ICD-10-PCS; 2018-12-13)
PROC: 0JB70ZZ Excision of Back Subcutaneous Tissue and Fascia, Open Approach (ICD-10-PCS; principal; 2018-12-23)
DX: C90.00 Multiple myeloma not having achieved remission (principal); N17.9 Acute kidney failure, unspecified; L89.153 Pressure ulcer of sacral region, stage 3; C79.51 Secondary malignant neoplasm of bone; E87.2 Acidosis; D63.8 Anemia in other chronic diseases classified elsewhere; C61 Malignant neoplasm of prostate; D49.7 Neoplasm of unspecified behavior of endocrine glands and other parts of nervous system; Z66 Do not resuscitate; G82.20 Paraplegia, unspecified; E87.5 Hyperkalemia; Z51.5 Encounter for palliative care; N13.30 Unspecified hydronephrosis; I11.9 Hypertensive heart disease without heart failure; M48.061 Spinal stenosis, lumbar region without neurogenic claudication; N40.0 Benign prostatic hyperplasia without lower urinary tract symptoms; R62.7 Adult failure to thrive; R73.9 Hyperglycemia, unspecified; Z85.6 Personal history of leukemia; Z75.1 Person awaiting admission to adequate facility elsewhere; Z91.19 Patient's noncompliance with other medical treatment and regimen; Z68.24 Body mass index [BMI] 24.0-24.9, adult; Z74.01 Bed confinement status; M19.90 Unspecified osteoarthritis, unspecified site
CPT/HCPCS: 36415; 36556; 36600; 38220; 71045; 72146; 72148; 76770; 80048; 80305; 82043; 82310; 82375; 82550; 82553; 82570; 82728; 82784; 82805; 82962; 83520; 83540; 83550; 83735; 83880; 83883; 83935; 84100; 84132; 84134; 84153; 84155; 84165; 84300; 84484; 85014; 85018; 85060; 85097; 86038; 86147; 86160; 86225; 86256; 86334; 86803; 86850; 86900; 86920; 87077; 87186; 87340; 88313; 93005; 93306; 93970; 97163; 97164; 97530; 99291; C1893; C9113; J0360; J1200; J1815; J1885; J1940; J2250; J2270; J2405; J2704; J3475; J3490; J7030; J7050; P9016; P9021; A4315; G0103

== ENCOUNTER 2019-05-12 09:24 | Emergency (ER) | payer SELFPAY ==
[~2019-05-12] VITALS: Ht 167.6 cm; Wt 64.0 kg
[~2019-05-12 09:24] MED LIST: AMLO5TAB88 PO; BICA50TA48 PO
[2019-05-12 11:08] LABS: COLOR URINE YELLOW (YELLOW); KETONES URINE NEGATIVE (NEGATIVE); LEUKOCYTE ESTERASE URINE 3+ (NEGATIVE); NITRITE URINE POSITIVE (NEGATIVE); OCCULT BLOOD URINE 2+ (NEGATIVE); PH URINE 8.5 (4.5-8.0); PROTEIN URINE 2+ (NEGATIVE); SPECIFIC GRAVITY URINE 1.014 (1.005-1.030)
[2019-05-12 11:11] LABS: CLARITY URINE CLOUDY (CLEAR)
[2019-05-12] MEDS ORDERED: NITROFURANTOIN 100MG M/M CAPSULE PO ONE (11:30)
[2019-05-12 15:00] VITALS: BP 129/85
== END 2019-05-12 15:13 | disposition home or self-care (01) ==
LOC: ER 09:24
DX: N39.0 Urinary tract infection, site not specified (principal); R33.9 Retention of urine, unspecified; I10 Essential (primary) hypertension; F12.90 Cannabis use, unspecified, uncomplicated
CPT/HCPCS: 51702; 81003; 87077; 87186; 99284